=== PATIENT | male | born 1950 | race Caucasian/White ===

== ENCOUNTER → 2019-12-12 09:16 | Outpatient (BNVA) | payer MEDICARE, SELFPAY | PROVIDERS: Visit Provider Surgery | DX: L72.0 Epidermal cyst (principal) | CPT/HCPCS: 99214 ==

== ENCOUNTER → 2019-12-30 10:39 | Outpatient (BNVA) | payer MEDICARE, SELFPAY | PROVIDERS: PCP Internal Medicine; Referring Provider Internal Medicine; Visit Provider Internal Medicine | DX: J44.9 Chronic obstructive pulmonary disease, unspecified (principal); F17.200 Nicotine dependence, unspecified, uncomplicated | CPT/HCPCS: 99213 ==

== ENCOUNTER 2020-01-23 07:48 | Outpatient (REF) | payer MEDICARE, SELFPAY ==
[2020-01-23 07:54] VITALS: BMI 29.5
[2020-01-23 07:55] VITALS: BP 154/88; PULSE 112; RESP 16; TEMP 36.1; O2SAT 96
--- NOTE | 2020-01-23 08:09 | MHC.SHP ---
Pre-Procedural Eval Section A The patient is an INPATIENT: No Changes since office visit: Yes Patient answered all questions; No Cold of Flu in the past 2 weeks, No New Medical Problems and No Changes in Medication The History & Physical has been completed within 30 days and I have reviewed it.: Yes Section B Chief Complaint: Epidermal Cyst Allergies: Allergies Allergy/AdvReac Type Severity Reaction Status Date / Time No Known Allergies Allergy Verified 12/30/19 10:54 Plan Diagnosis/Plan: Unchanged Patient has been examined and remains a candidate for the planned procedure
[2020-01-23 08:44] VITALS: BP 147/88; PULSE 102; RESP 16; O2SAT 95
--- NOTE | 2020-01-23 08:55 | W.PM.OPN ---
Operative Note Operative Note Date of Service: 01/23/20 Narrative: Preoperative diagnosis: Epidermal cyst of back Postoperative diagnosis: Same Procedure: Excision of epidermal cyst of back Anesthesia: Local 1% lidocaine with epinephrine 4 cc Specimen: Epidermal cyst of back Estimated blood loss: 4 cc Immediate complications: None Indications: Mr. Cabrera is a 69-year-old gentleman who has a history of an epidermal cyst of the back that has been slowly enlarging. He has developed the technique and risks of infection bleeding and scarring. Procedure in detail: Time-out procedure was performed. The surgical site was identified. With the patient in the prone position, the skin overlying and surrounding the cyst was prepped with Betadine solution and was draped sterilely. Skin and subcutaneous tissues in the surgical area were then infiltrated with local anesthetic. An elliptical incision was made with transverse orientation and was carried down to the anterior cyst wall. The cyst was dissected free circumferentially and was excised in entirety. Redundant skin at the surgical site was trimmed with iris scissors. The wound was then closed with interrupted subcutaneous sutures of 4-0 Polysorb and interrupted cutaneous sutures of 4-0 nylon. A dry sterile dressing was applied. He tolerated the procedure well. He will keep the area dry and covered for 24 hours, will use acetaminophen as needed for pain, and will be seen in the office for wound check and suture removal in about 1 week.
== END 2020-01-23 07:49 | disposition home or self-care (01) ==
LOC: HO.MS 07:48
PROVIDERS: PCP Internal Medicine; Visit Provider Surgery
DX: L72.0 Epidermal cyst (principal)
CPT/HCPCS: 11402; 12031; 88304

== ENCOUNTER → 2020-02-04 09:42 | Outpatient (BNVA) | payer MEDICARE, SELFPAY | PROVIDERS: PCP Internal Medicine; Visit Provider Surgery | DX: Z09 Encounter for follow-up examination after completed treatment for conditions other than malignant neoplasm (principal); Z87.2 Personal history of diseases of the skin and subcutaneous tissue | CPT/HCPCS: 99212 ==

== ENCOUNTER 2021-01-12 08:40 | Outpatient (REF) | payer MEDICARE, SELFPAY ==
--- NOTE | ~2021-01-12 | US_ITS ---
EXAMINATION: US THYROID CLINICAL INFORMATION: Goiter. COMPARISON: CT soft tissue neck 12/07/2017. Thyroid ultrasound 12/21/2012. TECHNIQUE: Linear transducer hernández-scale and color Doppler examination with attention to the region of the thyroid. FINDINGS: SIZE: Measurements of the thyroid lobes and nodules are given in sagittal, anteroposterior and transverse dimensions respectively. Right Thyroid Lobe: 7.8 x 4.0 x 3.3 cm, volume 54 mL. Previously 6.9 x 4.0 x 3.7 cm, volume 54 mL. Parenchyma: The gland echotexture is heterogeneous. Thyroid vascularity is normal. Left Thyroid Lobe: 6.8 x 2.1 x 2.4 cm, volume 18 mL. Previously 6.0 x 2.2 x 2.4 cm, volume 60 mL. Parenchyma: The gland echotexture is heterogeneous. Thyroid vascularity is normal. Isthmus: 0.4 cm in maximum AP dimension. Previously 0.3 cm. Multiple nodules are present bilaterally. Estimated total number of nodules greater than or equal to 1 cm: 4. 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 Location: Right mid pole. Size: 2.2 x 0.8 x 1.7 cm, volume 1.6 mL. Previously: 1.3 x 1.0 x 1.3 cm, volume 0.9 mL. Nodule characteristics: Composition: Solid (2). Echogenicity: Isoechoic (1). Shape: Not taller than wide (0). Margins: Smooth (0). Echogenic Foci: None (0). ACR TI-RADS total points: 3 Previous: Not applicable ACR TI-RADS category: 3 Previous: Not applicable Significant change in size (>/= 20% in 2 dimensions and minimal increase of 2 mm or 50% or greater increase in volume): Yes 2. Location: Right mid/lower pole. Size: 2.2 x 3.0 x 1.4 cm, volume 4.8 mL. Previously: Not documented. Nodule characteristics: Composition: Solid (2). Echogenicity: Isoechoic (1). Shape: Taller than wide (3). Margins: Smooth (0). Echogenic Foci: None (0). ACR TI-RADS total points: 6 Previous: Not applicable ACR TI-RADS category: 4 Previous: Not applicable 3. Location: Right mid/isthmus. Size: 1.0 x 1.6 x 1.2 cm, volume 1.0 mL. Previously: Not documented. Nodule characteristics: Composition: Solid (2). Echogenicity: Isoechoic (1). Shape: Taller than wide (3). Margins: Smooth (0). Echogenic Foci: None (0). ACR TI-RADS total points: 6 Previous: Not applicable ACR TI-RADS category: 6 Previous: Not applicable 4. Location: Right mid/isthmus. Size: 1.0 x 0.4 x 0.9 cm, volume 0.2 mL. Previously: 0.6 x 0.4 x 0.5 cm, volume 0.06 mL. Nodule characteristics: Composition: Mixed cystic and solid (1). Echogenicity: Hypoechoic (2). Shape: Not taller than wide (0). Margins: Smooth (0). Echogenic Foci: None (0). ACR TI-RADS total points: 3 Previous: Not applicable ACR TI-RADS category: 3 Previous: Not applicable Significant change in size (>/= 20% in 2 dimensions and minimal increase of 2 mm or 50% or greater increase in volume): Yes NODES: No lymphadenopathy is seen in the tissue surrounding the thyroid gland. US/US thyroid IMPRESSION: For right midpole nodule measuring 2.2 cm in largest dimension with TI-RADS category of 3, recommend follow-up ultrasounds in 1, 3, and 5 years. For nodule #2 located in the right mid to lower pole measuring 3 cm in largest dimension and with TI-RADS score of TR4, recommend fine-needle aspiration biopsy. For nodule #3 located in the right mid/isthmus region, ultrasound-guided core biopsy is recommended with it measuring 1.6 cm in largest dimension and having a TI-RADS category of TR4. ACR TI-RADS RECOMMENDATION REFERENCE: Ultrasound-guided fine-needle aspiration, followup ultrasound, no further follow up. * TR1 (0 point) and TR 2 (2 points): No FNA or follow up. * TR3 (3 points): FNA if more than or equal to 2.5 cm in maximum dimension, followup ultrasound in 1, 3 and 5 years if 1.5 to 2.4 cm in maximum dimension. * TR4 (4-6 points): FNA if more than or equal to 1.5 cm in maximum dimension, followup ultrasound in 1, 2, 3 and 5 years if 1 to 1.4 cm in maximum dimension. * TR5 (more than or equal to 7 points): FNA if more than or equal to 1 cm in maximum dimension, followup ultrasound every year for 5 years if 0.5 to 0.9 cm in maximum dimension. * TR3, TR4 or TR5 nodules that are below the size threshold for follow up receive no follow up.
== END 2021-01-12 08:41 | disposition home or self-care (01) ==
LOC: HO.US 08:40
PROVIDERS: PCP Internal Medicine; Visit Provider Internal Medicine
DX: E04.9 Nontoxic goiter, unspecified (principal)
CPT/HCPCS: 76536

== ENCOUNTER 2021-01-19 08:19 | Outpatient (REF) | payer MEDICARE, SELFPAY ==
[2021-01-19 08:50] LABS: MANUAL DIFF FLAG NO
[2021-01-19 09:53] LABS: Basophils Percent Auto 0.7 % (0-2); Eosinophils Absolute Auto 0.1 X10*3/uL (0.0-0.4); Eosinophils Percent Auto 0.9 % (0-4); Hematocrit 47.1 % (42.0-52.0); Hemoglobin 15.1 g/dl (14.0-18.0); Imm Gran Abs Auto 0.01 X10*3/uL (0.00-0.03); Imm Gran Pct Auto 0.2 % (0.0-0.4); Lymphocytes Absolute Auto 1.4 X10*3/uL (1.2-4.9); Lymphocytes Percent Auto 25.2 % (20-40); Mean Corpuscular HGB Conc 32.1 g/dl (31.0-36.0); Mean Corpuscular Hemoglobin 29.3 pg (27.0-33.0); Mean Corpuscular Volume 91.5 fL (80.0-98.0); Mean Platelet Volume 9.7 fL (9.4-12.4); Monocytes Absolute Auto 0.4 X10*3/uL (0.1-1.2); Monocytes Percent Auto 8.2 % (2-11); Neutrophils Absolute Auto 3.5 x10*3/uL (2.0-8.3); Neutrophils Percent Auto 64.8 % (45-73); Platelet Count 225 X10*3/uL (160-400); Red Blood Count 5.15 X10*6/uL (4.60-5.80); Red Cell Distribution Width 13.7 % (11.0-16.0); White Blood Count 5.4 X10*3/uL (4.8-10.8)
[2021-01-19 10:16] LABS: Alanine Aminotransferase 27 U/L (0-40); Albumin Level 4.1 g/dL (3.5-5.0); Alkaline Phosphatase 100 U/L (39-117); Anion Gap 14 (12-20); Aspartate Amino Transferase 25 U/L (5-37); Bilirubin Total 0.5 mg/dL (0.0-1.0); Blood Urea Nitrogen 20 mg/dL (9-16); Carbon Dioxide 25 mmol/L (22-29); Chloride 108 mmol/L (96-108); Cholesterol 162 mg/dL; Estimated Glomerular Filt Rate > 60; Glucose Fasting 103 mg/dL (60-99); HDL Cholesterol 64 mg/dL; LDL Cholesterol Calculated 86 mg/dl; Sodium 143 mmol/L (135-145); Total Protein 6.6 g/dL (6.5-8.0); Triglycerides 61 mg/dL
[2021-01-19 10:22] LABS: Free T4 (Free Thyroxine) 1.11 ng/dL (0.71-1.85); Thyroid Stimulating Hormone 0.91 uIU/mL (0.32-4.0)
[2021-01-21 02:57] LABS: Thyroid Peroxidase Antibodies 1 IU/mL (<9)
== END 2021-01-19 08:20 | disposition home or self-care (01) ==
LOC: HO.LAB 08:19
PROVIDERS: PCP Internal Medicine; Visit Provider Internal Medicine
DX: E04.9 Nontoxic goiter, unspecified (principal); I10 Essential (primary) hypertension; E78.5 Hyperlipidemia, unspecified
CPT/HCPCS: 36415; 80053; 80061; 84439; 84443; 85025; 86376